=== PATIENT | male | born 1975 | race Caucasian/White ===

== ENCOUNTER 2016-09-28 18:50 | Emergency (ER) | payer OTHER ==
[~2016-09-28] VITALS: Ht 175.3 cm; Wt 111.8 kg
[~2016-09-28 18:50] MED LIST: ALPR1TAB3 PO; ENAL5TAB98 PO; LEXA20TA PO; TIZA4 PO
[2016-09-28 19:20] VITALS: BP 135/108; PULSE 69; RESP 18; TEMP 98.2; O2SAT 96
[2016-09-28] MEDS ORDERED: LISI-515 PO (19:45)
[2016-09-28] MEDS ORDERED: ALPR1TAB3 PO (19:45)
[2016-09-28] MEDS ORDERED: PRAV40TA2 PO (19:45)
[2016-09-28] MEDS ORDERED: CITA20TA4 PO (19:45)
[2016-09-28] MEDS ORDERED: GABA100C4 PO (19:45)
[2016-09-28] MEDS ORDERED: ZYRT10CA PO (19:45)
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
[2016-09-28] MEDS ORDERED: IBUPROFEN 600 MG TAB PO ONE (21:00)
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
[2016-09-28] MEDS ORDERED: CYCL1TAB29 PO (22:00)
== END 2016-09-28 22:25 | disposition home or self-care (01) ==
LOC: PHED 18:50
DX: S16.1XXA Strain of muscle, fascia and tendon at neck level, initial encounter (principal); S29.019A Strain of muscle and tendon of unspecified wall of thorax, initial encounter; S00.83XA Contusion of other part of head, initial encounter; F41.9 Anxiety disorder, unspecified; F32.9 Major depressive disorder, single episode, unspecified; I10 Essential (primary) hypertension; V43.92XA Unspecified car occupant injured in collision with other type car in traffic accident, initial encounter
CPT/HCPCS: 70450; 72125; 72128